=== PATIENT | male | born 2000 | race American Indian/Alaskan Native ===

== ENCOUNTER 2019-12-20 04:56 | Emergency (ER) | payer MEDICAID ==
[2019-12-20 05:20] VITALS: BP 123/81; PULSE 103
[2019-12-20] MEDS ORDERED: Ketorolac 60 MG/2 ML SDV IM ONE (05:27)
--- NOTE | 2019-12-20 05:30 | EDM.PDOC ---
ED HPI GENERAL MEDICAL PROBLEM - General Chief Complaint: Lower Extremity Injury/Pain Stated Complaint: INJURED LEFT ANKLE Time Seen by Provider: 12/20/19 05:22 Source of Information: Reports: Patient, RN Notes Reviewed History Limitations: Reports: No Limitations - History of Present Illness INITIAL COMMENTS - FREE TEXT/NARRATIVE: 19-year-old gentleman presents emergency department a complaint of left ankle pain, he admits to consuming some alcohol he states he did fall off a porch about a 2 foot step and landed on the left ankle heard a twist and a pop Left Ankle Pain Score (Numeric/FACES): 8 - Related Data Allergies Allergy/AdvReac Type Severity Reaction Status Date / Time No Known Allergies Allergy Verified 02/22/16 05:49 Home Meds: Home Meds NK [No Known Home Meds] 12/20/19 [History] Past Medical History Musculoskeletal History: Reports: Fracture Psychiatric History: Reports: Anxiety, Depression Social & Family History - Tobacco Use Smoking Status *Q: Current Every Day Smoker Years of Tobacco use: 5 Packs/Tins Daily: 0.5 - Caffeine Use Caffeine Use: Reports: Coffee - Recreational Drug Use Recreational Drug Use: No Review of Systems - Review of Systems Review Of Systems: See Below Musculoskeletal: Reports: Foot Pain ED EXAM, GENERAL - Physical Exam Exam: See Below Free Text/Narrative:: Examination of the left ankle I do appreciate little bit of edema especially around the lateral malleolus there is no obvious deformity pedal pulse +2 sensation is intact he can move all digits without difficulty Exam Limited By: No Limitations General Appearance: Alert, WD/WN, No Apparent Distress ED TRAUMA EXTREMITY PROCEDURES - Splinting Left Lower Extremity Pre-Procedure NV Status: Normal Post-Procedure NV Status: Normal Splint Material: Fiberglass Splint Design: Posterior Provider Post-Splint Application NV Check: NV Status Normal, Good Position Complications: No Course - Vital Signs Last Recorded V/S: Last Vital Signs Temp 98 F 12/20/19 05:06 Pulse 103 H 12/20/19 05:06 Resp 16 12/20/19 05:06 BP 123/81 12/20/19 05:06 Pulse Ox 97 12/20/19 05:06 - Orders/Labs/Meds Meds: Medications Discontinued Medications Generic Name Dose Route Start Last Admin Trade Name Fremalaika PRN Reason Stop Dose Admin Ketorolac Tromethamine 60 mg 12/20/19 05:27 12/20/19 05:38 Toradol IM 12/20/19 05:28 60 mg ONETIME ONE Administration Departure - Departure Time of Disposition: 05:59 Disposition: Home, Self-Care 01 Condition: Fair Clinical Impression: Left ankle sprain Qualifiers: Encounter type: initial encounter Involved ligament of ankle: unspecified ligament Qualified Code(s): S93.402A - Sprain of unspecified ligament of left ankle, initial encounter - Discharge Information Instructions: Ankle Sprain Referrals: PCP,None [Primary Care Provider] - Forms: ED Department Discharge Additional Instructions: Use Tylenol or Motrin as needed for pain control, continue to use crutches for comfort, follow-up with your primary care in the next 3 to 5 days for reevaluation, call return to the emergency department worsening of symptoms Sepsis Event Note - Evaluation Sepsis Screening Result: No Definite Risk - Focused Exam Vital Signs: Vital Signs Temp Pulse Resp BP Pulse Ox 12/20/19 05:06 98 F 103 H 16 123/81 97 Date Exam was Performed: 12/20/19 Time Exam was Performed: 05:58 - Assessment/Plan Plan: Assessment Acuity = acute Site and laterality = left ankle sprain Etiology = secondary trauma Manifestations = none Location of injury = Home Lab values = x-ray reveals no fracture Plan Placed in a posterior splint crutches for ambulation Tylenol Motrin as needed for pain control follow-up primary care 3 to 5 days for reevaluation This note was dictated using [employer] voice recognition software please call with any questions on syntax or grammar.
--- NOTE | 2019-12-20 05:46 | CRLCR ---
Indication: Fall, pain Technique: Three views Comparison: None Findings: Bones: Alignment is normal. No fractures or bone lesions. Joint spaces: Unremarkable. Soft tissues: Moderate lateral soft tissue swelling. Dictated by Damion Rebollar MD @ Dec 20 2019 5:44AM Signed by Dr. Damion Rebollar @ Dec 20 2019 5:44AM
== END 2019-12-20 06:11 | disposition home or self-care (01) ==
LOC: JP.ED 04:56
DX: S93.402A Sprain of unspecified ligament of left ankle, initial encounter (principal); F17.210 Nicotine dependence, cigarettes, uncomplicated; W13.9XXA Fall from, out of or through building, not otherwise specified, initial encounter
CPT/HCPCS: 29515; 73610; 96372; 99283; J1885

== ENCOUNTER → 2023-01-04 | Emergency (ER) | payer MEDICAID | LOC: JP.ED 14:26 | DX: Z53.21 Procedure and treatment not carried out due to patient leaving prior to being seen by health care provider (principal) ==